=== PATIENT | male | born 1980 | race Caucasian/White ===

== ENCOUNTER 2018-03-23 08:07 | Emergency (ER) | payer OTHER ==
[~2018-03-23] VITALS: Ht 177.8 cm; Wt 99.8 kg
[2018-03-23 08:16] VITALS: Ht 177.8 cm; Wt 99.8 kg
[2018-03-23 08:36] VITALS: BP 122/68
== END 2018-03-23 08:37 | disposition home or self-care (01) ==
LOC: ED 08:07
DX: K08.89 Other specified disorders of teeth and supporting structures (principal)

== ENCOUNTER 2018-06-11 09:38 | Emergency (ER) | payer MEDICAID ==
[~2018-06-11] VITALS: Ht 177.8 cm; Wt 98.0 kg
[2018-06-11 09:43] VITALS: BP 116/72; Ht 177.8 cm; Wt 98.0 kg
== END 2018-06-11 11:27 | disposition home or self-care (01) ==
LOC: ED 09:38
DX: M25.562 Pain in left knee (principal)

== ENCOUNTER 2018-08-10 11:50 | Emergency (ER) | payer MEDICAID ==
[~2018-08-10] VITALS: Ht 177.8 cm; Wt 104.8 kg
[2018-08-10 11:55] VITALS: Ht 177.8 cm; Wt 104.8 kg
[2018-08-10 12:48] LABS: BASOPHIL % 0.5 % (0-2); PLATELET COUNT 196 x10^3mcL (130-400); RED CELL DISTRIBUTION WIDTH 13.9 % (11.5-14.5)
[2018-08-10 12:52] LABS: CARBON DIOXIDE 30.6 mmol/L (21-32); CHLORIDE SERUM 106 mmol/L (98-107); CREATININE SERUM 1.1 mg/dL (0.7-1.3); GFR1 > 60 mL/min; GLUCOSE SERUM 95 mg/dL (74-106); POTASSIUM SERUM 3.9 mmol/L (3.5-5.1); SODIUM SERUM 141 mmol/L (136-145)
[2018-08-10 12:57] LABS: ALKALINE PHOSPHATASE 46 U/L (46-116); ALT/SGPT 25 U/L (16-63); AMYLASE 49 U/L (25-115); AST/SGOT 20 U/L (15-37); BILIRUBIN TOTAL 0.2 mg/dL (0.20-1.00); LIPASE 131 IU/L (73-393); TOTAL PROTEIN, SERUM 7.3 g/dL (6.4-8.2)
[2018-08-10 15:11] VITALS: BP 131/76
== END 2018-08-10 15:11 | disposition home or self-care (01) ==
LOC: ED 11:50
PROVIDERS: Emergency Medicine
DX: R10.11 Right upper quadrant pain (principal); R00.2 Palpitations; R11.0 Nausea
CPT/HCPCS: 36415